=== PATIENT | female | born 1995 | race Caucasian/White ===

== ENCOUNTER 2019-03-23 20:00 | Emergency (ER) | payer MEDICAID ==
[~2019-03-23] VITALS: Ht 160 cm; Wt 74.0 kg
[2019-03-24 01:34] VITALS: BP 115/68
== END 2019-03-24 01:35 | disposition home or self-care (01) ==
LOC: ER 20:00
DX: T16.2XXA Foreign body in left ear, initial encounter (principal); Y93.E8 Activity, other personal hygiene; X58.XXXA Exposure to other specified factors, initial encounter; Y92.098 Other place in other non-institutional residence as the place of occurrence of the external cause
CPT/HCPCS: 69200; 99284

== ENCOUNTER 2025-08-21 16:27 | Emergency (ER) | payer MEDICAID ==
[~2025-08-21] VITALS: Ht 162.6 cm; Wt 71.0 kg
[2025-08-21 16:30] VITALS: BP 142/85; PULSE 99; RESP 18; TEMP 36.8; O2SAT 99
== END 2025-08-21 18:31 | disposition left against medical advice (07) ==
LOC: ER 16:27
DX: F41.9 Anxiety disorder, unspecified (principal); J45.909 Unspecified asthma, uncomplicated
CPT/HCPCS: 99281

== ENCOUNTER 2025-09-08 04:54 | Emergency (ER) | payer MEDICAID ==
[~2025-09-08] VITALS: Ht 157.5 cm; Wt 77.0 kg
[2025-09-08 05:02] VITALS: TEMP 36.8; O2SAT 100
[2025-09-08 05:47] LABS: BASOPHILS % 0.7 % (0.0-2.0); EOSINOPHILS % 5.1 % (0.0-5.0); HEMATOCRIT. 36.6 % (36.0-48.0); HEMOGLOBIN. 12.3 g/dL (12.0-16.0); LYMPHOCYTES % 48.8 % (20.0-50.0); MEAN PLATELET VOLUME 8.9 fl (7.4-10.4); MONOCYTES % 6.0 % (2.0-8.0); NEUTROPHILS % 39.4 % (40.0-76.0); PLATELET 276 x1000/uL (130-400); RED BLOOD CELL COUNT 4.21 mill/uL (4.2-5.4); RED CELL DISTRIBUTION WIDTH 14.9 % (11.6-14.6)
[2025-09-08 06:03] LABS: CREATININE 0.6 mg/dL (0.6-1.0); UREA NITROGEN BLOOD 9 mg/dL (9-23)
[2025-09-08 06:04] LABS: TROPONIN I HIGH SENSITIVITY < 4 ng/L (3.0-34)
[2025-09-08 07:52] VITALS: TEMP 98.3
[2025-09-08 08:20] LABS: TROPONIN I HIGH SENSITIVITY < 4 ng/L (3.0-34)
[2025-09-08 08:47] VITALS: BP 122/69; PULSE 62; RESP 18; O2SAT 100
== END 2025-09-08 08:51 | disposition home or self-care (01) ==
LOC: ER 04:54 → CANBEDREQ 08:33 → ER 08:51
DX: R07.89 Other chest pain (principal); J45.909 Unspecified asthma, uncomplicated
CPT/HCPCS: 36415; 71045; 80048; 84484; 85025; 93005; 99285